=== PATIENT | female | born 1980 | race Caucasian/White ===

== ENCOUNTER → 2017-04-16 | Outpatient (CLI) | payer BC ==
[~2017-04-16] MED LIST: GABA800T2 PO; TRM50T PO
--- NOTE | 2017-04-16 15:23 | Diagnostic Imaging Report ---
INDICATION: Pelvic pain. TECHNIQUE: Multiple real-time grayscale sonographic images were obtained of the pelvis transabdominally and endovaginally. CORRELATION STUDY: None. FINDINGS: UTERUS/ENDOMETRIUM: Uterus measures 7.4 x 4.0 x 3.9 cm. Endometrial thickness is 10 mm. The uterus and endometrium appearing unremarkable. RIGHT OVARY: 4.4 x 3.0 x 3.5 cm. LEFT OVARY: 3.2 x 2.3 x 1.6 cm. The ovaries are unable be visualized on transabdominal imaging only There is a hypoechoic mass most compatible with cyst in the right ovary 3.2 x 3.2 x 3.0 cm in size. Vascular flow is demonstrated to both ovaries. No significant free pelvic fluid. IMPRESSION: 1. Probable physiologic right ovarian cyst at 3 cm in size. Otherwise unremarkable pelvic ultrasound evaluation. Dictated by: Dictated on workstation # [id number]
--- NOTE | 2017-04-16 19:25 | Diagnostic Imaging Report ---
Bilateral diagnostic mammogram. The current study was also evaluated with a Computer Aided Detection (CAD) system. INDICATION: Breast discharge and pain on both sides. COMPARISON: The current study is a baseline exam with no prior studies for comparison available. FINDINGS: Scattered fibroglandular densities are seen slightly dense in the central aspect of each breast. Benign-appearing calcifications are noted. No mass, architectural distortion or suspicious cluster of calcifications identified. IMPRESSION: No mammographic evidence of malignancy. Ultrasound evaluation pending. ACR BI-RADS Category 0: Incomplete. (Needs additional imaging evaluation). Result letter will be mailed to the patient. Note: At least 10% of breast cancer is not imaged by mammography. Dictated by: Dictated on workstation # [id number]
--- NOTE | 2017-04-16 19:31 | Diagnostic Imaging Report ---
Bilateral breast ultrasound. INDICATION: Breast pain on the left side and bilateral breast discharge. FINDINGS: The four-quadrant and retroareolar region of each breast were scanned with no underlying abnormality seen. IMPRESSION: Negative study. Correlate clinically and consider further evaluation for the discharge with cytology, and/or breast MRI if needed. ACR BI-RADS Category 1: Negative. Dictated by: Dictated on workstation # [id number]
== END ==
LOC: RAD 07:38
PROVIDERS: ATTEND Obstetrics & Gynecology
DX: N64.3 Galactorrhea not associated with childbirth (principal); N64.4 Mastodynia; N83.201 Unspecified ovarian cyst, right side
CPT/HCPCS: 76830; 76856; 77066

== ENCOUNTER → 2017-08-25 | Outpatient (CLI) | payer BC ==
[2017-08-25 14:54] LABS: ALANINE AMINOTRANSFERASE 24 U/L (0-55); ALBUMIN 4.1 GM/DL (3.2-4.5); ANION GAP 8 MMOL/L (5-14); ASPARTATE AMINO TRANSFERASE 27 U/L (5-34); BILIRUBIN,TOTAL 0.3 MG/DL (0.1-1.0); BLOOD UREA NITROGEN 10 MG/DL (7-18); BUN/CREATININE RATIO 12; CALCIUM 9.5 MG/DL (8.5-10.1); CARBON DIOXIDE 26 MMOL/L (21-32); CHLORIDE 104 MMOL/L (98-107); CREATININE SERUM 0.86 MG/DL (0.60-1.30); GFR ESTIMATED > 60; GLUCOSE 89 MG/DL (70-105); MAGNESIUM 1.8 MG/DL (1.8-2.4); POTASSIUM 4.4 MMOL/L (3.6-5.0); SODIUM 138 MMOL/L (135-145); TOTAL PROTEIN 7.5 GM/DL (6.4-8.2)
== END ==
LOC: SDC 14:08
PROVIDERS: ATTEND Nurse Practitioner Family
DX: R25.3 Fasciculation; M62.838 Other muscle spasm
CPT/HCPCS: 36415; 80053; 80202; 83735

== ENCOUNTER → 2018-03-01 | Outpatient (CLI) | payer BC, OTHER ==
--- NOTE | 2018-03-01 17:55 | Diagnostic Imaging Report ---
INDICATION: Constipation, abdominal pain. EXAMINATION: Abdomen, 03/01/2018. FINDINGS: A single frontal view of the abdomen demonstrates scattered air and stool throughout the colon to the rectosigmoid. No dilated loops of bowel are seen. There is no evidence for free air. There are sutures in the right lower quadrant. IMPRESSION: 1. Nonobstructive bowel gas pattern. Dictated by: Dictated on workstation # [id number]
== END ==
LOC: RAD 17:11
PROVIDERS: ATTEND Family Medicine
DX: K59.00 Constipation, unspecified (principal)
CPT/HCPCS: 74018

== ENCOUNTER 2021-02-05 13:03 | Emergency (ER) | payer BC, OTHER ==
[~2021-02-05 13:03] MED LIST changes: +LORazepam INJ 2 MG/ML (ATIVAN) VIAL ONE
[2021-02-05] MEDS ORDERED: fentaNYL INJ 100 MCG/2 ML AMP ONE (13:16)
[2021-02-05 13:30] LABS: HEMATOCRIT 44 % (35-52); MEAN CORPUSCULAR HEMOGLOBIN 32 PG (25-34); MEAN CORPUSCULAR HGB CONC 32 G/DL (32-36); MEAN CORPUSCULAR VOLUME 100 FL (80-99); MEAN PLATELET VOLUME 10.1 FL (7.4-10.4); PLATELET COUNT 248 10^3/uL (130-400); WHITE BLOOD COUNT 13.2 10^3/uL (4.3-11.0)
[2021-02-05] MEDS ORDERED: NS IV 1000 ML 1,000 ML IV SCH (13:30)
[2021-02-05 13:31] LABS: BASOPHILS # (AUTO) 0.1 10^3/uL (0.0-0.1); BASOPHILS % (AUTO) 1 % (0-10); EOSINOPHILS # (AUTO) 0.2 10^3/uL (0.0-0.3); EOSINOPHILS % (AUTO) 1 % (0-10); LYMPHOCYTES # (AUTO) 5.2 X 10^3 (1.0-4.0); LYMPHOCYTES % (AUTO) 40 % (12-44); MONOCYTES # (AUTO) 0.6 X 10^3 (0.0-1.0); MONOCYTES % (AUTO) 4 % (0-12); NEUTROPHILS # (AUTO) 7.1 X 10^3 (1.8-7.8); NEUTROPHILS % (AUTO) 54 % (42-75)
--- NOTE | 2021-02-05 13:39 | ED General ---
General Stated Complaint: OVERDOSE History of Present Illness Date Seen by Provider: Feb 05, 2021 Time Seen by Provider: 13:10 Initial Comments -year-old female presents via EMS with altered mental status. Patient was found in her car sleeping and unarousable by family member (while she was at work). EMS was called and patient was only arousable with painful stimuli. She was given a milligram of Narcan on EMS arrival and she very rapidly woke up and was alert. Brought to ER without incident. On arrival she was awake, but somewhat somnolent and answering questions. She then began to have some abnormal movements, writhing and flailing her arms and legs without purpose. Took a history from her who arrived shortly after and he states she was up all night working on a project for work presentation today. He states she drinks a lot of Mountain Dew. She is also on a lot of medications including morphine, oxycodone, gabapentin for trigeminal neuralgia. States she does not use any illicit drugs and has no suspicions that she started. Allergies and Home Medications Allergies Coded Allergies: Doxycycline (Unverified Allergy, 01/21/11) Methylergonovine (Unverified Allergy, 01/21/11) Home Medications Gabapentin 800 Mg Tablet, 1,600 MG PO TID, (Reported) Tramadol Hcl 50 Mg Tab, 50 MG PO Q8H PRN, (Reported) Patient Home Medication List Home Medication List Reviewed: Yes Review of Systems Review of Systems Constitutional: no symptoms reported (unable to obtain complete ROS) Past Qtdjzpd-Qjdiag-Ekbctg Hx Past Med/Social Hx: Reviewed Nursing Past Med/Soc Hx Past Medical History Reproductive Disorders: Yes (endometriosis) Physical Exam Vital Signs Vital Signs - First Documented 02/05/21 13:05 Temp 36.2 Pulse 106 Resp 18 B/P (MAP) 130/99 (109) Pulse Ox 99 O2 Delivery Room Air Capillary Refill : Height, Weight, BMI Height: '" Weight: lbs. oz. kg; BMI Method: General Appearance: WD/WN HEENT: PERRL/EOMI (dilated), Normal ENT Inspection Neck: Normal Inspection, Non Tender, Supple Respiratory: Lungs Clear, Normal Breath Sounds, No Accessory Muscle Use, No Respiratory Distress Cardiovascular: Regular Rate, Rhythm, No Edema, No JVD Gastrointestinal: Normal Bowel Sounds, Soft Extremity: Normal Capillary Refill, Normal Range of Motion Neurologic/Psychiatric: Other (altered MS. Intermittent somnulence mixed w flailing and writhing. Able to answer some questions. disoriented. confused.) Progress/Results/Core Measures Suspected Sepsis SIRS Temperature: Pulse: Respiratory Rate: Laboratory Tests 02/05/21 13:15: White Blood Count 13.2H Blood Pressure / Mean: Laboratory Tests 02/05/21 13:15: Creatinine 0.73, Platelet Count 248, Total Bilirubin 0.2 Results/Orders Lab Results Laboratory Tests Test 02/05/21 13:15 Range/Units White Blood Count 13.2 H 4.3-11.0 10^3/uL Red Blood Count 4.38 4.35-5.85 10^6/uL Hemoglobin 14.0 11.5-16.0 G/DL Hematocrit 44 35-52 % Mean Corpuscular Volume 100 H 80-99 FL Mean Corpuscular Hemoglobin 32 25-34 PG Mean Corpuscular Hemoglobin Concent 32 32-36 G/DL Red Cell Distribution Width 14.8 H 10.0-14.5 % Platelet Count 248 130-400 10^3/uL Mean Platelet Volume 10.1 7.4-10.4 FL Immature Granulocyte % (Auto) 1 % Neutrophils (%) (Auto) 54 42-75 % Lymphocytes (%) (Auto) 40 12-44 % Monocytes (%) (Auto) 4 0-12 % Eosinophils (%) (Auto) 1 0-10 % Basophils (%) (Auto) 1 0-10 % Neutrophils # (Auto) 7.1 1.8-7.8 X 10^3 Lymphocytes # (Auto) 5.2 H 1.0-4.0 X 10^3 Monocytes # (Auto) 0.6 0.0-1.0 X 10^3 Eosinophils # (Auto) 0.2 0.0-0.3 10^3/uL Basophils # (Auto) 0.1 0.0-0.1 10^3/uL Immature Granulocyte # (Auto) 0.1 0.0-0.1 10^3/uL Sodium Level 141 135-145 MMOL/L Potassium Level 4.0 3.6-5.0 MMOL/L Chloride Level 102 98-107 MMOL/L Carbon Dioxide Level 27 21-32 MMOL/L Anion Gap 12 5-14 MMOL/L Blood Urea Nitrogen 7 7-18 MG/DL Creatinine 0.73 0.60-1.30 MG/DL Estimat Glomerular Filtration Rate > 60 BUN/Creatinine Ratio 10 Glucose Level 157 H 70-105 MG/DL Calcium Level 8.3 L 8.5-10.1 MG/DL Corrected Calcium 8.1 L 8.5-10.1 MG/DL Total Bilirubin 0.2 0.1-1.0 MG/DL Aspartate Amino Transf (AST/SGOT) 36 H 5-34 U/L Alanine Aminotransferase (ALT/SGPT) 34 0-55 U/L Alkaline Phosphatase 162 H 40-136 U/L Troponin I < 0.30 <0.30 NG/ML Total Protein 6.6 6.4-8.2 GM/DL Albumin 4.3 3.2-4.5 GM/DL Serum Alcohol < 10 <10 MG/DL Smear Scan OK My Orders Orders - ROVENSTINE,KATIANA L DO Lorazepam Injection (Ativan Injection) (02/05/21 13:03) Ed Iv/Invasive Line Start (02/05/21 13:18) Cbc With Automated Diff (02/05/21 13:18) Comprehensive Metabolic Panel (02/05/21 13:18) Lactic Acid Analyzer (02/05/21 13:18) Urinalysis (02/05/21 13:18) Troponin I Fs (02/05/21 13:18) Alcohol (02/05/21 13:18) Drug Screen Stat (Urine) (02/05/21 13:18) Ns Iv 1000 Ml (Sodium Chloride 0.9%) (02/05/21 13:30) Fentanyl Injection (Sublimaze Injection (02/05/21 13:16) Ct Head Wo (02/05/21 13:39) Fentanyl Injection (Sublimaze Injection (02/05/21 14:00) Lorazepam Injection (Ativan Injection) (02/05/21 14:00) Lorazepam Injection (Ativan Injection) (02/05/21 14:30) Fentanyl Injection (Sublimaze Injection (02/05/21 14:30) Lorazepam Injection (Ativan Injection) (02/05/21 14:45) Medications Given in ED Current Medications Medications Dose Ordered Sig/Curry Route Start Time Stop Time Status Last Admin Dose Admin Fentanyl Citrate 100 mcg ONCE ONCE IVP 02/05/21 14:00 02/05/21 14:01 DC 02/05/21 14:15 100 MCG Fentanyl Citrate 100 mcg Q1H PRN IVP 02/05/21 14:30 02/05/21 13:48 100 MCG Lorazepam 1 mg ONCE ONCE IVP 02/05/21 14:00 02/05/21 14:01 DC 02/05/21 14:16 1 MG Lorazepam 2 mg ONCE ONCE IVP 02/05/21 14:30 02/05/21 14:31 DC 02/05/21 13:15 1 MG Lorazepam 2 mg ONCE ONCE IVP 02/05/21 14:45 02/05/21 14:46 DC 02/05/21 14:25 1 MG Vital Signs/I&O 02/05/21 13:05 Temp 36.2 Pulse 106 Resp 18 B/P (MAP) 130/99 (109) Pulse Ox 99 O2 Delivery Room Air Capillary Refill : Progress Note : Progress Note Called Dr Langley @ 1400 to admit to [place], she called back "no ICU beds, sorry". Called [facility], @ 1415, no ICU beds, sorry. Called [facility] @ 1420..... Dr Beckwith accepts for transfer @ 9254. On EMS arrival, patient initially alert and was able to help herself into the [facility]. She was able to answer some questions and was cooperative, but then gradually began to flail her extremities and right her body and agitation and become uncooperative. Patient initially given Ativan 1 mg with little effect, then 2 mg with little effect. Pupils were dilated and determined likely having opioid withdrawal as we had discovered she was a chronic opioid user and at high dosages for many years. Had great difficulty getting her head CT as patient was intermittently flailing and had to be held down. Was given aliquots of fentanyl 25, then 50 mcg at a time up to 200 mcg over a period of about an hour to avoid giving her too much. Eventually going back and forth, giving more Ativan, patient was finally calm and sleeping. Due to her body habitus, large neck and short obese stature patient does have apparent sleep apnea. She was controlling her airway, but additional oxygen was added to maintain her sats above 90%. Patient now resting comfortably, vital signs stable at this point no further intervention is necessary. History from her was that she was up all night preparing for a work presentation, so she had no sleep last night. She allegedly did give her presentation today and then went to her car to take a nap where she was found by a family member who came to visit her. Very difficult to arouse. Her has no suspicion of illicit drug use, but does know that she takes "a lot of medication". Her PCP, Dr. LANGLEY admits that she has been trying to switch her to longer acting opioids as she has been on very high doses for the past 9 years and had in the recent past been taking as much as 15 mg of oxycodone every 2 hours daily. Diagnostic Imaging Diagonstic Imaging: CT Comments INDICATION: Unresponsive and combative. Quality of study is significantly limited due to patient combativeness and patient motion. No prior studies are available for comparison. The ventricular size is normal. No midline shift is identified. No definite acute intra-axial or extra-axial hemorrhage is detected. Cisterns are patent. Visualized paranasal sinuses are clear. IMPRESSION: Limited study due to motion artifact. No gross abnormality is detected. Dictated on workstation # [id number] Dict: 02/05/21 1358 Trans: 02/05/21 1400 CV [id number] Interpreted by: JUAN TURNER MD Electronically signed by: Departure Impression Primary Impression: Drug overdose Qualified Codes: T50.901A - Poisoning by unspecified drugs, medicaments and biological substances, accidental (unintentional), initial encounter Additional Impression: Altered mental status Qualified Codes: R41.82 - Altered mental status, unspecified Disposition: 02 XFER SHT-TRM HOSP ([facility]) Condition: Stable Transfer Transfer Reason: Diversion (no ICU beds in [place]) Time Spoke to Accepting Phy: 14:44 Transfer Progress Notes see "progress" section w details. Dr Beckwith accepts for transfer to [facility] Departure-Patient Inst. Referrals: AI LANGLEY MD (PCP/Family) Primary Care Physician KATIANA CALDERON DO Feb 05, 2021 13:39
[2021-02-05 13:56] LABS: ALANINE AMINOTRANSFERASE 34 U/L (0-55); ALKALINE PHOSPHATASE 162 U/L (40-136); BILIRUBIN,TOTAL 0.2 MG/DL (0.1-1.0); BUN/CREATININE RATIO 10; CALCIUM 8.3 MG/DL (8.5-10.1); CARBON DIOXIDE 27 MMOL/L (21-32); CHLORIDE 102 MMOL/L (98-107); CREATININE SERUM 0.73 MG/DL (0.60-1.30); GFR ESTIMATED > 60; GLUCOSE 157 MG/DL (70-105); SODIUM 141 MMOL/L (135-145); TOTAL PROTEIN 6.6 GM/DL (6.4-8.2)
[2021-02-05 13:57] LABS: ALBUMIN 4.3 GM/DL (3.2-4.5)
[2021-02-05 14:00] LABS: SMEAR SCAN COMMENT OK
[2021-02-05] MEDS ORDERED: LORazepam INJ 2 MG/ML (ATIVAN) VIAL IVP ONE ×3 (14:00→14:45)
[2021-02-05] MEDS ORDERED: fentaNYL INJ 100 MCG/2 ML AMP IVP ONE (14:00)
--- NOTE | 2021-02-05 14:00 | Diagnostic Imaging Report ---
PROCEDURE: CT head without contrast. TECHNIQUE: Multiple contiguous axial images were obtained through the brain without the use of intravenous contrast. Auto Exposure Controls were utilized during the CT exam to meet ALARA standards for radiation dose reduction. INDICATION: Unresponsive and combative. Quality of study is significantly limited due to patient combativeness and patient motion. No prior studies are available for comparison. The ventricular size is normal. No midline shift is identified. No definite acute intra-axial or extra-axial hemorrhage is detected. Cisterns are patent. Visualized paranasal sinuses are clear. IMPRESSION: Limited study due to motion artifact. No gross abnormality is detected. Dictated by: Dictated on workstation # [id number]
[2021-02-05] MEDS ORDERED: fentaNYL INJ 100 MCG/2 ML AMP IVP PRN (14:30)
[2021-02-05 16:51] VITALS: BP 149/84
== END 2021-02-05 16:53 | disposition short-term general hospital (02) ==
LOC: EDUNIT# 13:03 → ER FS 13:04
DX: T40.2X1A Poisoning by other opioids, accidental (unintentional), initial encounter (principal); R41.82 Altered mental status, unspecified; I10 Essential (primary) hypertension; Z88.1 Allergy status to other antibiotic agents; Z88.8 Allergy status to other drugs, medicaments and biological substances
CPT/HCPCS: 36415; 70450; 80053; 84484; 85025; 99291; G0480; 80320

== ENCOUNTER 2021-02-08 18:20 | Emergency (ER) | payer BC ==
[~2021-02-08 18:20] MED LIST changes: -LORazepam INJ 2 MG/ML (ATIVAN) VIAL ONE
--- NOTE | 2021-02-08 18:28 | ED GI ---
General Chief Complaint: Abdominal/GI Problems Stated Complaint: NAUSEA,VOMITING History of Present Illness Date Seen by Provider: Feb 08, 2021 Time Seen by Provider: 18:28 Initial Comments 40-year-old female presents with nausea and vomiting. Patient was discharged from [facility] yesterday. Patient was there after an accidental narcotic overdose after medication adjustment. Patient had a little episode of some nausea on March 23 episode of vomiting yesterday and has gotten worse today. Patient denies abdominal pain. Patient had a significant work-up at [place] including CTs, x-rays etc. Patient is negative for Covid. Patient opioid medication was adjusted down. Patient does not have a any reports of cough, fevers or chills. Allergies and Home Medications Allergies Coded Allergies: Doxycycline (Unverified Allergy, 01/21/11) Methylergonovine (Unverified Allergy, 01/21/11) Home Medications Gabapentin 800 Mg Tablet, 1,600 MG PO TID, (Reported) Tramadol Hcl 50 Mg Tab, 50 MG PO Q8H PRN, (Reported) Patient Home Medication List Home Medication List Reviewed: Yes Review of Systems Review of Systems Constitutional: No chills; malaise Respiratory: Denies Cough, Denies Shortness of Air Cardiovascular: Denies Chest Pain, Denies Lightheadedness Gastrointestinal: Nausea, Vomiting Genitourinary: No Symptoms Reported Skin: no symptoms reported Psychiatric/Neurological: No Symptoms Reported Endocrine: No Symptoms Reported Hematologic/Lymphatic: No Symptoms Reported Past Oxmmaga-Hmjmei-Mhnrnq Hx Past Med/Social Hx: Reviewed Nursing Past Med/Soc Hx Patient Social History Type Used: Cigarettes Recent Hopitalizations: No Seasonal Allergies Seasonal Allergies: No Past Medical History Surgeries: No Respiratory: No Cardiac: No Neurological: No Reproductive Disorders: Yes (endometriosis) Sexually Transmitted Disease: No Gastrointestinal: Yes (C-DIF 4 YRS AGO) Musculoskeletal: No Endocrine: No Integumentary: No Blood Disorders: No Physical Exam Vital Signs Vital Signs - First Documented 02/08/21 02/08/21 18:27 21:46 Temp 36.5 Pulse 54 Resp 18 B/P (MAP) 148/59 (88) Pulse Ox 96 O2 Delivery Room Air Capillary Refill : Height/Weight/BMI Height: '" Weight: lbs. oz. kg; BMI Method: General Appearance: mild distress HEENT: PERRL/EOMI Neck: full range of motion Respiratory: lungs clear, normal breath sounds Cardiovascular: normal peripheral pulses, regular rate, rhythm Gastrointestinal: non tender, soft; No distended, No guarding, No rebound; tenderness Back: no CVA tenderness Neurologic/Psychiatric: no motor/sensory deficits, alert, oriented x 3 Skin: normal color, warm/dry Progress/Results/Core Measures Results/Orders Lab Results Laboratory Tests Test 02/08/21 18:43 Range/Units White Blood Count 11.7 H 4.3-11.0 10^3/uL Red Blood Count 4.16 L 4.35-5.85 10^6/uL Hemoglobin 13.2 11.5-16.0 G/DL Hematocrit 40 35-52 % Mean Corpuscular Volume 96 80-99 FL Mean Corpuscular Hemoglobin 32 25-34 PG Mean Corpuscular Hemoglobin Concent 33 32-36 G/DL Red Cell Distribution Width 14.5 10.0-14.5 % Platelet Count 242 130-400 10^3/uL Mean Platelet Volume 10.2 7.4-10.4 FL Immature Granulocyte % (Auto) 1 % Neutrophils (%) (Auto) 64 42-75 % Lymphocytes (%) (Auto) 28 12-44 % Monocytes (%) (Auto) 6 0-12 % Eosinophils (%) (Auto) 0 0-10 % Basophils (%) (Auto) 1 0-10 % Neutrophils # (Auto) 7.5 1.8-7.8 X 10^3 Lymphocytes # (Auto) 3.3 1.0-4.0 X 10^3 Monocytes # (Auto) 0.7 0.0-1.0 X 10^3 Eosinophils # (Auto) 0.1 0.0-0.3 10^3/uL Basophils # (Auto) 0.1 0.0-0.1 10^3/uL Immature Granulocyte # (Auto) 0.1 0.0-0.1 10^3/uL Sodium Level 137 135-145 MMOL/L Potassium Level 4.1 3.6-5.0 MMOL/L Chloride Level 97 L 98-107 MMOL/L Carbon Dioxide Level 26 21-32 MMOL/L Anion Gap 14 5-14 MMOL/L Blood Urea Nitrogen 11 7-18 MG/DL Creatinine 0.66 0.60-1.30 MG/DL Estimat Glomerular Filtration Rate > 60 BUN/Creatinine Ratio 17 Glucose Level 95 70-105 MG/DL Calcium Level 9.0 8.5-10.1 MG/DL Corrected Calcium 8.8 8.5-10.1 MG/DL Total Bilirubin 0.5 0.1-1.0 MG/DL Aspartate Amino Transf (AST/SGOT) 28 5-34 U/L Alanine Aminotransferase (ALT/SGPT) 33 0-55 U/L Alkaline Phosphatase 145 H 40-136 U/L Total Protein 6.8 6.4-8.2 GM/DL Albumin 4.3 3.2-4.5 GM/DL Lipase 36 8-78 U/L My Orders Orders - CARRILLO,LALI L DO Ondansetron Injection (Zofran Injectio (02/08/21 18:45) Lactated Ringers (Lr 1000 Ml Iv Solution (02/08/21 18:32) Famotidine Injection (Pepcid Injection) (02/08/21 18:32) Ed Iv/Invasive Line Start (02/08/21 18:32) Cbc With Automated Diff (02/08/21 18:32) Comprehensive Metabolic Panel (02/08/21 18:32) Lipase (02/08/21 18:32) Abdomen Flat & Upright/Decub (02/08/21 18:32) Promethazine Injection (Phenergan Injec (02/08/21 20:03) Medications Given in ED Current Medications Medications Dose Ordered Sig/Curry Route Start Time Stop Time Status Last Admin Dose Admin Ondansetron HCl 4 mg ONCE ONCE IVP 02/08/21 18:45 02/08/21 18:46 DC 02/08/21 18:52 4 MG Vital Signs/I&O 02/08/21 02/08/21 18:27 21:46 Temp 36.5 Pulse 54 52 Resp 18 18 B/P (MAP) 148/59 (88) 101/62 Pulse Ox 96 99 O2 Delivery Room Air Progress Progress Note : Time: 21:36 Progress Note Patient symptoms improved with IV fluids, Zofran and Phenergan. I suspect that patient is likely withdrawing either from gabapentin, decrease narcotics or combination of both. Patient stable. She has Zofran at home. Patient will be discharged home. She should return to the ER as needed. Follow-up with her primary care next week Diagnostic Imaging Diagonstic Imaging: Xray Plain Films/CT/US/NM/MRI: abdomen Comments [facility]. [place], [place] NAME: JESSICA MELVIN [facility] REC#: [id number] PT STATUS: REG ER : 1980 PHYSICIAN: LALI CARRILLO DO ADMIT DATE: 02/08/21/ER FS Draft Date of Exam:02/08/21 ABDOMEN FLAT & UPRIGHT/DECUB EXAMINATION: Abdomen 2 views at 7:12 PM INDICATION: Abdominal pain Supine and erect views were obtained. There is some gas in both the large and small bowel in a nonspecific fashion. This appearance is similar to the prior exam of 03/01/2018 although there are a few dilated gas-filled segments of small bowel overlying the left mid abdomen which were not present on the prior study. The bowel gas pattern remains nonspecific, however. There is no evidence for bowel obstruction. There is no mass or organomegaly appreciated. Surgical sutures are again seen overlying the right mid abdomen and there are surgical clips in the region of the gallbladder fossa. There is no sign of a pneumoperitoneum. The osseous structures are intact. IMPRESSION: 1. A few dilated gas-filled segments of small bowel have developed since the prior exam. This appearance is nonspecific, however. There is no evidence for a bowel obstruction. 2. If clinical concern regarding an underlying abnormality persists, then CT of the abdomen and pelvis would be recommended for further study. Reviewed: Reviewed by Me, Reviewed/Discussed Departure Impression Primary Impression: Nausea and vomiting Qualified Codes: R11.2 - Nausea with vomiting, unspecified Additional Impression: Symptom of drug withdrawal Disposition: 01 HOME, SELF-CARE Condition: Stable Departure-Patient Inst. Referrals: AI ALBRECHT MD (PCP/Family) Primary Care Physician Patient Instructions: Nausea and Vomiting, Adult Add. Discharge Instructions: Use your already prescribed Zofran as directed Drink plenty of fluids, start with clear liquid diet and advance as tolerated Follow-up with your primary care provider next All discharge instructions reviewed with patient and/or family. Voiced understanding. LALI CARRILLO DO Feb 08, 2021 18:28
[2021-02-08] MEDS ORDERED: FAMOTIDINE 20MG/2ML IV (PEPCID) IV STA (18:32)
[2021-02-08] MEDS ORDERED: LACTATED RINGERS 1,000 ML IV STA (18:32)
[2021-02-08] MEDS ORDERED: ONDANSETRON 4 MG/2 ML (SDV) Z0FRAN IVP ONE (18:45)
[2021-02-08 18:48] LABS: BASOPHILS % (AUTO) 1 % (0-10); EOSINOPHILS % (AUTO) 0 % (0-10); HEMATOCRIT 40 % (35-52); HEMOGLOBIN 13.2 G/DL (11.5-16.0); LYMPHOCYTES % (AUTO) 28 % (12-44); MEAN CORPUSCULAR HEMOGLOBIN 32 PG (25-34); MEAN CORPUSCULAR HGB CONC 33 G/DL (32-36); MEAN CORPUSCULAR VOLUME 96 FL (80-99); MEAN PLATELET VOLUME 10.2 FL (7.4-10.4); MONOCYTES % (AUTO) 6 % (0-12); NEUTROPHILS % (AUTO) 64 % (42-75); PLATELET COUNT 242 10^3/uL (130-400); WHITE BLOOD COUNT 11.7 10^3/uL (4.3-11.0)
[2021-02-08 18:49] LABS: BASOPHILS # (AUTO) 0.1 10^3/uL (0.0-0.1); EOSINOPHILS # (AUTO) 0.1 10^3/uL (0.0-0.3); LYMPHOCYTES # (AUTO) 3.3 X 10^3 (1.0-4.0); MONOCYTES # (AUTO) 0.7 X 10^3 (0.0-1.0); NEUTROPHILS # (AUTO) 7.5 X 10^3 (1.8-7.8)
[2021-02-08 19:10] LABS: ALANINE AMINOTRANSFERASE 33 U/L (0-55); ALBUMIN 4.3 GM/DL (3.2-4.5); ALKALINE PHOSPHATASE 145 U/L (40-136); BILIRUBIN,TOTAL 0.5 MG/DL (0.1-1.0); BUN/CREATININE RATIO 17; CARBON DIOXIDE 26 MMOL/L (21-32); CHLORIDE 97 MMOL/L (98-107); CREATININE SERUM 0.66 MG/DL (0.60-1.30); GFR ESTIMATED > 60; GLUCOSE 95 MG/DL (70-105); LIPASE 36 U/L (8-78); POTASSIUM 4.1 MMOL/L (3.6-5.0); SODIUM 137 MMOL/L (135-145); TOTAL PROTEIN 6.8 GM/DL (6.4-8.2)
--- NOTE | 2021-02-08 19:53 | Diagnostic Imaging Report ---
EXAMINATION: Abdomen 2 views at 7:12 PM INDICATION: Abdominal pain Supine and erect views were obtained. There is some gas in both the large and small bowel in a nonspecific fashion. This appearance is similar to the prior exam of 03/01/2018 although there are a few dilated gas-filled segments of small bowel overlying the left mid abdomen which were not present on the prior study. The bowel gas pattern remains nonspecific, however. There is no evidence for bowel obstruction. There is no mass or organomegaly appreciated. Surgical sutures are again seen overlying the right mid abdomen and there are surgical clips in the region of the gallbladder fossa. There is no sign of a pneumoperitoneum. The osseous structures are intact. IMPRESSION: 1. A few dilated gas-filled segments of small bowel have developed since the prior exam. This appearance is nonspecific, however. There is no evidence for a bowel obstruction. 2. If clinical concern regarding an underlying abnormality persists, then CT of the abdomen and pelvis would be recommended for further study. Dictated by: Dictated on workstation # [id number]
[2021-02-08] MEDS ORDERED: PROMETHAZINE INJ 25 MG/ML (PHENERGAN) AMP IVP STA (20:03)
[2021-02-08 21:46] VITALS: BP 101/62
== END 2021-02-08 21:46 | disposition home or self-care (01) ==
LOC: EDUNIT# 18:20 → ER FS 18:21
DX: R11.2 Nausea with vomiting, unspecified (principal); F11.23 Opioid dependence with withdrawal; Z88.1 Allergy status to other antibiotic agents; Z88.8 Allergy status to other drugs, medicaments and biological substances
CPT/HCPCS: 36415; 74019; 80053; 83690; 85025